=== PATIENT | male | born 1995 | race Caucasian/White ===

== ENCOUNTER 2025-07-17 18:02 | Emergency (ER) | payer OTHER, SELFPAY ==
--- NOTE | 2025-07-17 18:21 | XR_ITS ---
Examination: AP chest single view Technique: AP portable upright chest single view Date and time: July 17, 2025, 182 hrs. Indications: Onset tachycardia today. Findings: Normal heart size Lungs are clear. The osseous structures are intact. Impression: No active disease.
[2025-07-17 18:22] VITALS: PULSE 148; RESP 18; O2SAT 99
[2025-07-17 18:24] VITALS: BP 124/101; PULSE 120; RESP 12; TEMP 36.9; O2SAT 100
--- NOTE | 2025-07-17 18:24 | EKG_ITS ---
[facility] Test Date: 2025-07-17 Pat Name: KATHIE ROBERTO Department: Room: - Gender: Male Fund Director: : 1995 Requested By: Larry Mcgrath Order Number: [id number] Reading MD: Larry Mcgrath Measurements Intervals [place] Rate: 126 P: 59 IN: 128 QRS: 81 QRSD: 86 T: 5 QT: 284 QTc: 412 Interpretive Statements SINUS TACHYCARDIA NONSPECIFIC ST & T-WAVE ABNORMALITY ABNORMAL RHYTHM ECG No previous ECG available for comparison /[id number]/[email or web address]/[id number].pdf
--- NOTE | 2025-07-17 18:32 | PC.NURSE ---
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 PT WAS IMMEDIATELY GIVEN INTRANASAL NARCAN BY OTHER OFFICER BECAUSE OF POSSIBLE EXPOSURE. PT IS ALERT AND ORIENTED. NO LOC REPORTED. NO PAIN OR DIFFICULTY BREATHING REPORTED AT THIS TIME. PT ON CC MONITOR
--- NOTE | 2025-07-17 18:34 | PD.EDOVER ---
ED Overdose RME/HPI General Chief Complaint: Overdose Stated Complaint: EXPOSURE TO FENTANYL Time Seen by Provider: 07/17/25 18:12 Arrival date/time: 07/17/25 18:02 RME / HPI RME / HPI Narrative: DR. 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 No chills, fever, nausea or vomiting. Patient requested Narcan that was administered on scene which resulted in subjective improvement. No seizure, no?syncopal episode. PMH: unremarkable. PSH: unremarkable. Allergies: none. Social: Occasional drinker, no tobacco or illicit drugs use. Related Data Allergies Allergy/AdvReac Type Severity Reaction Status Date / Time No Known Allergies Allergy Verified 07/17/25 18:25 Review of Systems Review of Systems Systems Reviewed: All systems reviewed, normal except as documented ED Exam Narrative Physical exam: GEN. APPEARANCE: The patient is alert awake oriented X-3 appears anxious, lying down comfortably, does not look ill/toxic. Patient has good eye contact. Patient is cooperative. VITALS: All vitals were reviewed and the pulse ox is 100% on room air which is normal according to my interpretation, with the exception of being notably tachycardic. HEENT: Normocephalic, atraumatic. Pupils are equal and reactive. Oral mucosa is moist. Patent Nares NECK: Supple, nontender, no thyromegaly, no meningismus, no JVD, no step offs CHEST: Symmetrical, atraumatic, and with equal expansion , Nontender on palpation no deformity and no crepitus. CARDIOVASCULAR: Tachycardic, no murmur or gallop rub or extra beats. LUNGS: Clear to auscultation bilaterally with symmetrical chest rise. No laboring tachypnea or wheezing. No intercostal subcostal retraction. No rales and no rhonchi. ABDOMEN: Soft, flat, nontender to palpation, no guarding or rebound tenderness. There are no abnormal masses palpated. Active and normal bowel sounds. EXTREMITIES: Nontender. No edema. No cyanosis. Patient is able to move all 4 extremities well, with full ROM and good CSM. SKIN: Warm and dry, no jaundice or rashes noted. MUSCULOSKELETAL: No lubar or midline bony tenderness. There is no CVA tenderness. No paraspinal muscle spasm or tenderness. NEURO: Patient is CHENEY x 4, Cranial nerves II through XII grossly intact. There is no focal neurologic deficits noted. GCS is 15, PNS and LEARNING ADMINISTRATOR appear grossly intact. PSYCHIATRIC: Patient is in normal mood and affect, cooperative, no SI or HI or hallucinations. Course Course Course Narrative: CXR was ordered for determining the etiology of shortness of breath. Quality Measures none Orders Category Date Time Status EKG (ED ONLY) *Do not use* NOW Care 07/17/25 18:24 Completed IV [Insert IV] NOW Care 07/17/25 18:28 Active EKG (ED Only) Stat Exams 07/17/25 18:24 Draft XR chest 1V portable Stat Exams 07/17/25 18:21 Completed CBC [CBC] Stat Lab 07/17/25 19:00 Completed CMP [Comprehensive Metabolic Panel] Stat Lab 07/17/25 19:00 Completed D-Dimer Stat Lab 07/17/25 19:00 Completed Drug Screen,Urine Stat Lab 07/17/25 16:40 Completed Thyroid Stimulating Hormone Stat Lab 07/17/25 19:00 Completed Troponin I Stat Lab 07/17/25 19:00 Completed Urinalysis, C/S if Indicated Stat Lab 07/17/25 16:40 Completed Diazepam Inj [Valium Inj] Med 07/17/25 18:25 Discontinued 5 mg IVP X1 ONE Sodium Chloride 0.9% 1000 ml [Ns] 1,000 ml Med 07/17/25 18:21 Discontinued IV 999 mls/hr Sodium Chloride 0.9% 1000 ml [Ns] 1,000 ml Med 07/17/25 21:31 Discontinued IV 999 mls/hr Vital Signs Vital signs: Vital Signs Temperature 98.4 F 07/17/25 18:24 Pulse Rate 120 H 07/17/25 18:24 Respiratory Rate 12 07/17/25 18:24 Blood Pressure 124/101 H 07/17/25 18:24 Pulse Oximetry (%) 100 07/17/25 18:24 Oxygen Delivery Method Room Air 07/17/25 18:24 Overdose MDM Narrative MDM Narrative:: Scribe Attestation: IHaven, am scribing for and in the presence of Dr. Tipton. Provider Notation: Although this document has been carefully reviewed, there may still be some phonetic and other typographical errors. These errors are purely grammatical due to imperfections in the software program and should not be construed in any way to compromise the substance of the patient's medical care during this visit. 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 No chills, fever, nausea or vomiting. Please see PE findings. Laboratory markers including CBC,, serum chemistries, thyroid function, UA, and toxicology screen were unremarkable. Patient hydrated with normal saline IV and placed on well logging operator mud analysis. After IV fluids HR decreased to 80-90 range. Remained normotensive, neurologically intact. With mild exertion, blood pressure was labile and increased to 125 at time. Suffers from anxiety and had palpitations in the past. There is no sign of ischemia, infarction, or pericarditis. Remained stable after low-dose benzodiazepine and resting comfortably at time of discharge. Will recommend patient telemetric monitoring and echocardiography. Clinical impression includes non-specific tachycardia. Patient data External records reviewed:: [facility] previous records (No prior ED records available for review) Clinical information provided by:: patient Social determinants that could affect healthcare access:: none Patient has the following chronic illnesses:: None reported How is presenting disease/condition affected by chronic disease/condition?: no chronic disease Evaluation data The following diagnostics were reviewed and interpreted by me:: lab results, radiology exam(s) and EKG tracing(s) (EKG shows sinus tachycardia at 126, no acute ST segment elevations, equivocal ST depression in interior leads, rightward axis, per my interpretation.) Lab and/or radiology exams considered but not ordered:: None Interpretation Summary: RADIOLOGY Chest X-Ray: Findings: Normal heart size Lungs are clear. The osseous structures are intact. Impression: No active disease. Medications / Prescriptions Medications or Prescriptions considered but not ordered:: None Medication administrations:: Medication Administration History Discontinued Medications Diazepam (Diazepam Inj 5 Mg/Ml Vial 2 Ml) 5 mg IVP X1 ONE Stop: 07/17/25 18:26 Last Admin: 07/17/25 18:47 Dose: 5 mg Documented By: ROD Comments: Sodium Chloride (Ns) 1,000 mls @ 999 mls/hr IV .Q1H1M ONE Stop: 07/17/25 19:21 Last Infusion: 07/17/25 19:55 Dose: Infused Documented By: [email or web address] Admin: 07/17/25 18:48 Dose: 999 mls/hr Documented By: ROD Sodium Chloride (Ns) 1,000 mls @ 999 mls/hr IV .Q1H1M ONE Stop: 07/17/25 22:31 Last Admin: 07/17/25 22:54 Dose: 999 mls/hr Documented By: YOLANDA See above if any Consultations Consultation(s) initiated? (list below): No Diagnosis Overdose Differential Diagnosis: cocaine intoxication, poisoning by opiate or related narcotic, drug overdose and accidental drug ingestion Most likely diagnosis given after review of the tests above:: Paroxysmal sinus tachycardia, Generalized anxiety disorder Admission Indicated Admission indicated?: not indicated Explain why admission is indicated or not indicated:: Patient does not meet admission criteria Admission Request Was there a request for admission?: No Disposition Plan Disposition Plan: Discharge Discharge Attestation Discharge Attestation: The patient and all family members were given an opportunity to ask questions and understood the discharge instructions. Discharge instructions specifically effects, indications for sooner follow up or return to the emergency department, and the expected course of current diagnosis. Patient condition: Stable Discharge Plan Plan Patient Disposition: HOME (Self Care) Patient condition on transfer: Stable Prescriptions/Referrals Referrals: ESTEVAN DIOR [Primary Care Provider] - In 1 week Problem List Clinical Impression: Paroxysmal sinus tachycardia, Generalized anxiety disorder Patient/Caregiver Discharge Instructions Discharge Activity: activity as tolerated Other Activity Instructions:: Avoid strenuous activity. Education Materials: Understanding Tachycardia Additional Instructions: Avoid strenuous activity. Recommend referral to controlled atmospheric furnace brazer for remote telemetric monitoring and echocardiography. Print Language: Danish Stand Alone Forms: Kayleen Award Info., Patient Portal Info Letter
[2025-07-17] MEDS: DIAZEPAM INJ 5 MG/ML VIAL 2 ML IVP (18:47)
[2025-07-17] MEDS: SODIUM CHLORIDE 0.9% 1000 ML 1,000 ML 999 ML IV ×2 (18:48→22:54)
[2025-07-17 18:55] VITALS: BP 147/84; PULSE 127; RESP 22; O2SAT 97; BMI 23.7
[2025-07-17 19:16] LABS: Collection Type, Urine Clean Catch; Squamous Epithelial Cell,Urine 0 /hpf (0-5)
[2025-07-17 19:19] LABS: Basophils # (Auto) 0.1 Thou/mm3 (0.0-0.2); Basophils % (Auto) 1 % (0-2.5); Eosinophils # (Auto) 0.1 Thou/mm3 (0.0-0.5); Eosinophils % (Auto) 1 % (0-10); Hematocrit 42.4 % (41.0-53.0); Hemoglobin 15.2 g/dL (13.5-16.0); Immature Granulocytes Auto 0.05 Thou/mm3 (0.00-0.00); Lymphocytes # (Auto) 2.3 Thou/mm3 (1.0-4.8); Lymphocytes % (Auto) 19 % (10-50); Mean Corpuscular HGB Conc 35.8 g/dl (31.0-37.0); Mean Corpuscular Hemoglobin 30.8 pg (25.0-35.0); Mean Corpuscular Volume 86 fL (80-100); Monocytes # (Auto) 0.9 Thou/mm3 (0.0-0.8); Monocytes % (Auto) 8 % (0-12); Neutrophils # (Auto) 8.6 Thou/mm3 (1.8-7.7); Neutrophils % (Auto) 72 % (37-80); Nucleated Red Blood Cell # 0.00 Thou/mm3 (0.00-0.00); Nucleated Red Blood Cell % 0 /100 WBC (0); Platelet Count 251 Thou/mm3 (140-440); RDW Standard Deviation 37.4 fL (35.1-43.9); Red Blood Count 4.94 Miln/mm3 (4.50-5.90); White Blood Count 12.0 Thou/mm3 (3.8-10.6)
[2025-07-17 19:22] LABS: Bilirubin,Urine Negative (Negative); Blood,Urine Negative (Negative); Clarity,Urine Clear (Clear/Hazy); Color,Urine Lt-Yellow (Lt Yel-Yel); Culture Indicated,Urine Not Indicated; Glucose, Urine Negative (Negative); Ketones,Urine Negative (Negative); Leukocyte Esterase,Urine Negative (Negative); Nitrite,Urine Negative (Negative); PH,Urine 6.5 (5.0-7.0); Protein,Urine Trace (Neg - Trace); RBC,Urine 1 /hpf (0-3); Specific Gravity,Urine 1.015 (1.001-1.035); Urobilinogen,Urine Negative mg/dL (0.0-1.0); WBC,Urine < 1 /hpf (0-5)
[2025-07-17 19:29] LABS: Amphetamine/Methamp Scrn,U Negative (Negative); Barbiturate Screen,Urine Negative (Negative); Benzodiazepines Screen,Urine Negative (Negative); Benzoylecgonine Screen, Ur Negative (Negative); Fentanyl Screen,Urine Negative (Negative); Opiate Screen,Urine Negative (Negative); THC Screen,Urine Negative (Negative)
[2025-07-17 19:36] LABS: Alanine Aminotransferase 17 U/L (10-49); Albumin, Serum 4.5 gm/dL (3.5-5.0); Albumin/Globulin Ratio 2.1 (1.2-2.2); Alkaline Phosphatase 66 U/L (46-116); Anion Gap 12 (7-16); Aspartate Amino Transferase 19 U/L (0-34); BUN/Creatinine Ratio 17 Ratio (12-20); Bilirubin,Total 0.6 mg/dL (0.3-1.2); Blood Urea Nitrogen 20 mg/dL (9-23); Calcium 9.1 mg/dL (8.3-10.6); Calcium (Corrected) 9.1 mg/dL (8.5-10.1); Carbon Dioxide 23.6 mMol/L (20.0-31.0); Chloride 105 mMol/L (98-107); Creatinine (Component) 1.2 mg/dL (0.6-1.3); Estimated Creatinine Clearance 100.6 mL/min (>60); Globulin 2.1 gm/dL (2.3-3.5); Glucose 103 mg/dL (74-106); Osmolality,Calculated 283 (275-295); Potassium 3.8 mMol/L (3.4-5.1); Sodium 141 mMol/L (136-145); Total Protein 6.6 gm/dL (5.7-8.2); Troponin I < 0.002 ng/mL (0.0-0.045); eGFR > 60 See Note
[2025-07-17 20:32] VITALS: BP 143/82; PULSE 101; RESP 16; O2SAT 98
[2025-07-17 21:53] LABS: D-Dimer < 250 ng/mL (<600); Thyroid Stimulating Hormone 3.62 uIU/mL (0.55-4.78)
[2025-07-17 22:10] VITALS: BP 135/88; PULSE 91; PULSE 94; RESP 16; O2SAT 98
[2025-07-17 23:18] VITALS: BP 134/78; PULSE 92; RESP 19; TEMP 36.8; O2SAT 98
== END 2025-07-18 01:22 | disposition home or self-care (01) ==
PROVIDERS: Emergency Provider Emergency Medicine; PCP Family Medicine; Referring Provider Emergency Medicine
DX: I47.19 Other supraventricular tachycardia (principal); F41.1 Generalized anxiety disorder
CPT/HCPCS: 36415; 71045; 80053; 80307; 81001; 84443; 84484; 85025; 85379; 93005; 96127; 96361; 96374; 99284; J3360; J7030